=== PATIENT | female | born 1955 | race Caucasian/White ===

== ENCOUNTER 2018-10-02 06:46 | Inpatient (IN) ==
[2018-09-27 11:46] LABS: Basophils % 0.3 % (0.0-0.8); Eosinophils % 0.5 % (0.00-10.9); Hematocrit 39.3 VOL% (35.7-47.0); Hemoglobin 12.5 GM/DL (12.0-16.0); Immature Granulocytes % 0.2 %; Immature Granulocytes Absolute 0.01 #; Lymphocytes # 2.1 10*3/uL (1.4-4.0); Lymphocytes % 36.3 % (21.3-54.2); Mean Corpuscular HGB Conc 31.8 GM/DL (32-36); Mean Corpuscular Volume 98.5 FL (87-102); Mean Platelet Volume 10.3 FL (9.6-12.0); Monocytes % 9.7 % (1.7-12.7); Platelet Count 195 T/CUMM (130-400); Red Blood Count 3.99 MC/CUMM (3.8-5.5); Red Cell Distribution Width 12.9 % (9.3-17.3); White Blood Count 5.9 T/CUMM (4-12)
[2018-09-27 12:03] LABS: Albumin 3.7 G/DL (3.4-5.0); Bilirubin,Total 0.4 MG/DL (0.2-1.0); Calcium 9.2 MG/DL (8.5-10.1); Osmolality,Calculated 282.3 MOS/KG (273-304)
[~2018-10-02 06:46] MED LIST: DIAZEPAM 5 MG TABLET PO ONE; FAMOTIDINE 20 MG TABLET PO ONE; ceFAZolin 1,000 MG in SYRINGE 1 EACH IV ONE
[2018-10-02] MEDS ORDERED: BUPIVACAINE MPF 0.25% 30 ML VIAL ONE (07:22)
[2018-10-02] MEDS ORDERED: ceFAZolin 1,000 MG VIAL ONE (07:51)
[2018-10-02] MEDS ORDERED: LIDOCAINE 1% 20 ML VIAL ONE (07:52)
[2018-10-02] MEDS ORDERED: TISSUE ADHESIVE 1 EACH APPLICATOR TOP ONE (07:52)
[2018-10-02] MEDS ORDERED: HEPARIN 5,000 UNIT/1 ML VIAL ONE (07:52)
[2018-10-02] MEDS ORDERED: LACTATED RINGERS 1,000 ML IV SCH (08:00)
[2018-10-02] MEDS ORDERED: PROMETHAZINE 25 MG/1 ML VIAL IM PRN (09:35)
[2018-10-02] MEDS ORDERED: DEXTROSE 10% 25 GM/250 ML BAG IV PRN (09:35)
[2018-10-02] MEDS ORDERED: HYDROmorphone 2 MG/1 ML VIAL IV PRN ×2 (09:35)
[2018-10-02] MEDS ORDERED: NALOXONE 0.4 MG/ML VIAL IV PRN (09:35)
[2018-10-02] MEDS ORDERED: GLUCAGON 1 MG VIAL IM PRN (09:35)
[2018-10-02] MEDS ORDERED: ONDANSETRON 4 MG/2 ML VIAL IV PRN (09:35)
[2018-10-02] MEDS ORDERED: oxyCODONE/ACETAMINOPHEN 5-325 MG TABLET PO PRN ×2 (09:35)
[2018-10-02] MEDS ORDERED: LIDOCAINE 1% 5 ML VIAL ONE (10:02)
[2018-10-02] MEDS ORDERED: SEVOFLURANE 1 UNIT/15 MINUTE INH ONE (10:02)
[2018-10-02] MEDS ORDERED: MIDAZOLAM 2 MG/2 ML VIAL ONE (10:03)
[2018-10-02] MEDS ORDERED: FAMOTIDINE 20 MG/2 ML VIAL IV ONE (10:03)
[2018-10-02] MEDS ORDERED: fentaNYL 100 MCG/2 ML VIAL ONE (10:03)
[2018-10-02] MEDS ORDERED: PROPOFOL 200 MG/20 ML VIAL IV ONE (10:04)
[2018-10-02] MEDS ORDERED: GLYCOPYRROLATE 0.4 MG/2 ML VIAL ONE (10:05)
[2018-10-02] MEDS ORDERED: KETOROLAC 30 MG/1 ML VIAL ONE (10:05)
[2018-10-02] MEDS ORDERED: PHENYLEPHRINE 1 MG/10 ML SYRINGE IV ONE (10:05)
[2018-10-02] MEDS ORDERED: PHENYLEPHRINE DRIP 20 MG/250 ML PREMIX IV ONE (10:05)
[2018-10-02] MEDS ORDERED: ONDANSETRON 4 MG/2 ML VIAL ONE (10:05)
[2018-10-02] MEDS ORDERED: DEXAMETHASONE 4 MG/1 ML VIAL ONE (10:05)
[2018-10-02] MEDS ORDERED: NITROGLYCERIN DRIP 50 MG/250 ML BOTTLE IV ONE (10:05)
[2018-10-02] MEDS ORDERED: SODIUM CHLORIDE 0.9% 1,000 ML IV ONE (10:06)
[2018-10-02] MEDS ORDERED: LACTATED RINGERS 1,000 ML IV ONE (10:06)
[2018-10-02] MEDS ORDERED: NEOSTIGMINE 10 MG/10 ML VIAL ONE (10:06)
[2018-10-02] MEDS ORDERED: ROCURONIUM 100 MG/10 ML VIAL IV ONE (10:06)
[2018-10-02] MEDS: LACTATED RINGERS 1,000 ML IV SCH ×2 (14:44→20:27)
[2018-10-02] MEDS: PHENYLEPHRINE DRIP 40 MG/250 ML PREMIX IV SCH (14:45)
[2018-10-02] MEDS: NITROPRUSSIDE 100 MG in DEXTROSE 5% 250 ML IV SCH (14:45)
[2018-10-02] MEDS ORDERED: SIMVASTATIN 20 MG TABLET PO SCH (21:00)
[2018-10-03] MEDS: LACTATED RINGERS 1,000 ML IV SCH (06:29)
[2018-10-03] MEDS ORDERED: CLOPIDOGREL 75 MG TABLET PO SCH (09:00)
[2018-10-03] MEDS ORDERED: ASPIRIN EC 81 MG TABLET PO SCH ×2 (09:00→10:37)
[2018-10-03] MEDS: NITROPRUSSIDE 100 MG in DEXTROSE 5% 250 ML IV SCH (11:29)
[2018-10-03] MEDS: PHENYLEPHRINE DRIP 40 MG/250 ML PREMIX IV SCH (11:29)
[2018-10-03] MEDS ORDERED: MAGNESIUM HYDROXIDE SUSP 30 ML UDCUP PO ONE (13:00)
[2018-10-03 16:18] VITALS: BP 110/42
== END 2018-10-03 18:41 | disposition home or self-care (01) | DRG 39 ==
LOC: N.SDSINP 06:46 → N.ICU 14:05 → N.3E 10-03 09:23
PROVIDERS: ADMIT Surgery; ATTEND Surgery